=== PATIENT | female | born 1940 | race Caucasian/White ===

== ENCOUNTER 2017-04-08 13:32 | Emergency (ER) | payer MEDICARE, OTHER ==
[2017-04-08] MEDS ORDERED: Sodium Chloride 0.9% 10 ML Syringe FLUSH PRN (14:21)
[2017-04-08] MEDS ORDERED: Ondansetron 4 MG/2 ML SDV IVPUSH ONE (14:22)
[2017-04-08] MEDS ORDERED: Sodium Chloride 0.9% 1,000 ML IV SCH (14:30)
--- NOTE | 2017-04-08 14:31 | EDM.PDOC ---
ED HPI GENERAL MEDICAL PROBLEM - General Chief Complaint: Respiratory Problem Stated Complaint: BODY ACHES Time Seen by Provider: 04/08/17 13:57 Source of Information: Reports: Patient History Limitations: Reports: No Limitations - History of Present Illness INITIAL COMMENTS - FREE TEXT/NARRATIVE: Patient is 77-year-old female presents ED complaining of leg cramping bilaterally. Patient states symptoms started a few days ago and have progressively gotten worse. She states she's been unable to get a restful sleep secondary to the cramps. She was seen by her primary care provider yesterday and placed on a narcotic medication that did not relieve any discomfort or the frequency of cramping. In addition she's also been evaluated by her GI doctor in [place] for chronic diarrhea. She was placed on a powder presumed Colestid 2 months ago that has decreased the frequency of diarrhea episodes. Patient does have a history of adverse reactions to Lipitor and other statins and is concerned with her research that Lipitor may be within the Colestid. Patient is unaware that this is a bile acid sequestrant. She's also noted some discomfort to the anterior aspect her legs bilaterally that comes and goes. At times with onset of crampy she feels that she will follow over. She states that at times feel weak in her legs. In addition she's also been fighting a upper respiratory cold that is mild in nature and resolving for the past few days. She has noted some increased frequency of urination for the past week. Has felt mildly nauseated. No documented fever, shortness of breath, sore throat, chest pain, vomiting, blood in her stool, dysuria, or any additional complaints. Bilateral Lower Pain Score (Numeric/FACES): 9 - Related Data Allergies Allergy/AdvReac Type Severity Reaction Status Date / Time atorvastatin [From Lipitor] Allergy Joint Pain Verified 04/08/17 14:06 ezetimibe [From Vytorin] Allergy Other Verified 04/08/17 14:06 ibuprofen [From Motrin] Allergy Hypertensio Verified 04/08/17 14:06 n morphine Allergy Joint Pain Verified 04/08/17 14:06 oxycodone Allergy Joint Pain Verified 04/08/17 14:06 simvastatin [From Vytorin] Allergy Other Verified 04/08/17 14:06 Sulfa (Sulfonamide Allergy Swelling Verified 04/08/17 14:06 Antibiotics) Home Meds: Home Meds Aspirin [Halfprin] 81 mg PO DAILY 04/08/17 [History] Budesonide [Entocort EC] 3 mg PO DAILY 04/08/17 [History] Escitalopram Oxalate [Lexapro] 5 mg PO DAILY 04/08/17 [History] Fexofenadine [Laurie] 180 mg PO DAILY 04/08/17 [History] Fluticasone/Salmeterol [Advair 250-50 Diskus] 1 puff INH ASDIRECTED 04/08/17 [ History] Gluc 2KCl/Chondr/Claudio Hy/Hy Ac [Glucosamine & Chondroitin Cap] 1 cap PO DAILY [History] Lansoprazole [Prevacid] 20 mg PO DAILY 04/08/17 [History] Levothyroxine [Synthroid] 88 mcg PO DAILY 04/08/17 [History] Losartan/Hydrochlorothiazide [Hyzaar 100-25 Tablet] 1 tab PO DAILY 04/08/17 [ History] Potassium Chloride 20 meq PO QAM #30 tablet.er 04/08/17 [Rx] amLODIPine Besylate [Norvasc] 2.5 mg PO DAILY 04/08/17 [History] Past Medical History Cardiovascular History: Reports: Hypertension Gastrointestinal History: Reports: GERD, Other (See Below) Other Gastrointestinal History: celiaic disease Psychiatric History: Reports: Anxiety Endocrine/Metabolic History: Reports: Hypothyroidism - Past Surgical History HEENT Surgical History: Reports: Other (See Below) Other HEENT Surgeries/Procedures: sinus and seasonal allergies GI Surgical History: Reports: Colonoscopy Musculoskeletal Surgical History: Reports: Knee Replacement Social & Family History - Tobacco Use Smoking Status *Q: Never Smoker - Caffeine Use Caffeine Use: Reports: Coffee - Recreational Drug Use Recreational Drug Use: No ED ROS GENERAL - Review of Systems Review Of Systems: ROS reveals no pertinent complaints other than HPI. ED EXAM, GENERAL - Physical Exam Exam: See Below Exam Limited By: No Limitations General Appearance: Alert, WD/WN, No Apparent Distress Ears: Hearing Grossly Normal Nose: Normal Inspection Throat/Mouth: Normal Voice, No Airway Compromise Neck: Normal Inspection, Supple Respiratory/Chest: No Respiratory Distress, Lungs Clear, Normal Breath Sounds, No Accessory Muscle Use, Chest Non-Tender Cardiovascular: Normal Peripheral Pulses, Regular Rate, Rhythm, No Murmur Peripheral Pulses: 2+: Posterior Tibial (L), Posterior Tibial (R), 4+: Radial (L ), Radial (R) GI/Abdominal: Normal Bowel Sounds, Soft, Non-Tender, No Organomegaly, No Distention Back Exam: Normal Inspection Extremities: Normal Inspection, Normal Range of Motion, Non-Tender, No Pedal Edema, Normal Capillary Refill Neurological: Alert, Oriented, CN II-XII Intact, Normal Cognition, No Motor/ Sensory Deficits Psychiatric: Normal Affect, Normal Mood Skin Exam: Warm, Dry, Intact, Normal Color, No Rash Course - Vital Signs Last Recorded V/S: Last Vital Signs Temp 97.0 F 04/08/17 13:55 Pulse 66 04/08/17 13:55 Resp 20 04/08/17 13:55 BP 151/91 H 04/08/17 13:55 Pulse Ox 98 04/08/17 13:55 - Orders/Labs/Meds Orders: Active Orders 24 hr Category Date Time Status EKG Documentation Completion [RC] STAT Care 04/08/17 16:00 Active Peripheral IV Care [RC] . DIRECTED Care 04/08/17 14:21 Active MYOGLOBIN,URN Stat Lab 04/08/17 14:25 Received Peripheral IV Insertion Adult [OM.PC] Stat Oth 04/08/17 14:20 Ordered Labs: Laboratory Tests 04/08/17 04/08/17 04/08/17 Range/Units 14:25 14:30 14:30 WBC 7.83 (3.98-10.04) K/mm3 RBC 4.48 (3.98-5.22) M/mm3 Hgb 13.9 (11.2-15.7) gm/L Hct 40.1 (34.1-44.9) % MCV 89.5 (79.4-94.8) fl MCH 31.0 (25.6-32.2) pg MCHC 34.7 (32.2-35.5) g/dl RDW Std Deviation 44.5 (36.4-46.3) fL Plt Count 239 (182-369) K/mm3 MPV 7.9 L (9.4-12.3) fl Neut % (Auto) 48.0 (34.0-71.1) % Lymph % (Auto) 39.8 (19.3-51.7) % [place] % (Auto) 10.6 (4.7-12.5) % Eos % (Auto) 1.1 (0.7-5.8) Baso % (Auto) 0.5 (0.1-1.2) % Neut # (Auto) 3.75 (1.56-6.13) K/mm3 Lymph # (Auto) 3.12 (1.18-3.74) K/mm3 [place] # (Auto) 0.83 H (0.24-0.36) K/mm3 Eos # (Auto) 0.09 (0.04-0.36) K/mm3 Baso # (Auto) 0.04 (0.01-0.08) K/mm3 ESR (0-20) mm/hr Sodium 133 L (136-145) mEq/L Potassium 2.8 L (3.5-5.1) mEq/L Chloride 93 L (98-107) mEq/L Carbon Dioxide 30 (21-32) mEq/L Anion Gap 12.8 (5-15) BUN 13 (7-18) mg/dL Creatinine 0.8 (0.55-1.02) mg/dL Est Cr Clr Drug Dosing 48.06 mL/min Estimated GFR (MDRD) > 60 (>60) mL/min BUN/Creatinine Ratio 16.3 (14-18) Glucose 113 (83-115) mg/dL Calcium 9.4 (8.5-10.1) mg/dL Magnesium (1.8-2.4) mg/dl Total Bilirubin 0.4 (0.2-1.0) mg/dL AST 26 (15-37) U/L ALT 37 (14-59) U/L Alkaline Phosphatase 69 (46-116) U/L Creatine Kinase 59 (26-192) U/L C-Reactive Protein (<1.0) mg/dL Total Protein 8.1 (6.4-8.2) g/dl Albumin 4.0 (3.4-5.0) g/dl Globulin 4.1 gm/dL Albumin/Globulin Ratio 1.0 (1-2) Urine Color Yellow (Yellow) Urine Appearance Clear (Clear) Urine pH 7.0 (5.0-8.0) Ur Specific [place] 1.015 (1.005-1.030) Urine Protein Negative (Negative) Urine Glucose (UA) Negative (Negative) Urine Ketones Negative (Negative) Urine Occult Blood 2+ H (Negative) Urine Nitrite Negative (Negative) Urine Bilirubin Negative (Negative) Urine Urobilinogen 0.2 (0.2-1.0) Ur Leukocyte Esterase Negative (Negative) Urine RBC 0-5 (0-5) /hpf Urine WBC 0-5 (0-5) /hpf Ur Epithelial Cells 0-5 (0-5) /hpf Urine Bacteria Rare (FEW) /hpf Urine Mucus Not seen (FEW) /hpf 04/08/17 04/08/17 04/08/17 Range/Units 14:30 14:30 14:30 WBC (3.98-10.04) K/mm3 RBC (3.98-5.22) M/mm3 Hgb (11.2-15.7) gm/L Hct (34.1-44.9) % MCV (79.4-94.8) fl MCH (25.6-32.2) pg MCHC (32.2-35.5) g/dl RDW Std Deviation (36.4-46.3) fL Plt Count (182-369) K/mm3 MPV (9.4-12.3) fl Neut % (Auto) (34.0-71.1) % Lymph % (Auto) (19.3-51.7) % [place] % (Auto) (4.7-12.5) % Eos % (Auto) (0.7-5.8) Baso % (Auto) (0.1-1.2) % Neut # (Auto) (1.56-6.13) K/mm3 Lymph # (Auto) (1.18-3.74) K/mm3 [place] # (Auto) (0.24-0.36) K/mm3 Eos # (Auto) (0.04-0.36) K/mm3 Baso # (Auto) (0.01-0.08) K/mm3 ESR 18 (0-20) mm/hr Sodium (136-145) mEq/L Potassium (3.5-5.1) mEq/L Chloride (98-107) mEq/L Carbon Dioxide (21-32) mEq/L Anion Gap (5-15) BUN (7-18) mg/dL Creatinine (0.55-1.02) mg/dL Est Cr Clr Drug Dosing mL/min Estimated GFR (MDRD) (>60) mL/min BUN/Creatinine Ratio (14-18) Glucose (83-115) mg/dL Calcium (8.5-10.1) mg/dL Magnesium 1.8 (1.8-2.4) mg/dl Total Bilirubin (0.2-1.0) mg/dL AST (15-37) U/L ALT (14-59) U/L Alkaline Phosphatase (46-116) U/L Creatine Kinase (26-192) U/L C-Reactive Protein < 0.2 (<1.0) mg/dL Total Protein (6.4-8.2) g/dl Albumin (3.4-5.0) g/dl Globulin gm/dL Albumin/Globulin Ratio (1-2) Urine Color (Yellow) Urine Appearance (Clear) Urine pH (5.0-8.0) Ur Specific [place] (1.005-1.030) Urine Protein (Negative) Urine Glucose (UA) (Negative) Urine Ketones (Negative) Urine Occult Blood (Negative) Urine Nitrite (Negative) Urine Bilirubin (Negative) Urine Urobilinogen (0.2-1.0) Ur Leukocyte Esterase (Negative) Urine RBC (0-5) /hpf Urine WBC (0-5) /hpf Ur Epithelial Cells (0-5) /hpf Urine Bacteria (FEW) /hpf Urine Mucus (FEW) /hpf Meds: Medications Discontinued Medications Generic Name Dose Route Start Last Admin Trade Name Freq PRN Reason Stop Dose Admin Hydrocodone Bitart/Acetaminophen 1 tab 04/08/17 15:53 04/08/17 16:11 Simla 325-5 Mg PO 04/08/17 15:54 1 tab ONETIME ONE Administration Sodium Chloride 1,000 mls @ 125 mls/hr 04/08/17 14:30 04/08/17 14:34 Normal Saline IV 125 mls/hr ASDIRECTED KELLEN Administration Ondansetron HCl 4 mg 04/08/17 14:22 04/08/17 14:34 Zofran IVPUSH 04/08/17 14:23 4 mg ONETIME ONE Administration Potassium Chloride 40 meq 04/08/17 15:08 04/08/17 15:22 Potassium Chloride PO 04/08/17 15:09 40 meq ONETIME ONE Administration Sodium Chloride 10 ml 04/08/17 14:21 04/08/17 14:36 Saline Flush FLUSH 10 ml ASDIRECTED PRN Administration Keep Vein Open - Re-Assessments/Exams Free Text/Narrative Re-Assessment/Exam: IV established with normal saline 125 mL per hour and Zofran 4 mg IVP. Initial lab studies include CBC, chem 14, esr, crp, creatine kinase, UA, and myoglobin urine. Last few: CBC essentially normal. Sodium 133, potassium 2.8, chloride 93, creatinine 0.8, hCG 12.8, CK 59, CRP less than 0.2, magnesium 1.8, UA positive for occult blood. Ordered potassium supplementation 40 mg by mouth. Myoglobin and ESR pending. Do not believe current complaint is related to rhabdomyolysis with normal CK and low potassium. Will discharge prior to results. Believe cause of cramping to the lower legs is secondary to hypokalemia. EKG was ordered. EKG revealed: 1st degree av block rate 64, QTc 467, MT 214. No previous EKG to compare with. Will discharge patient home with instructions as documented. Departure - Departure Time of Disposition: 16:22 Disposition: Home, Self-Care 01 Condition: Good Clinical Impression: Muscle ache, Bilateral leg cramps, Hypokalemia - Discharge Information Prescriptions: Potassium Chloride 20 meq PO QAM #30 tablet.er Instructions: Muscle Cramps and Spasms, Hypokalemia Referrals: Eugenia Herrera [employer] [employer] [Primary Care Provider] - Forms: ED Department Discharge Additional Instructions: As discussed potassium level was low which is contributing to the muscle cramps to your lower extremities. Will have you take potassium chloride 20 mEq every day. Suggest eating a banana a day and also drinking Gatorade or Powerade. Eat a balanced diet. Continue taking all your home medications as prescribed. Follow -up with PCP this coming week for reevaluation to see if muscle cramps are resolving. Return to the ED if you develop any new or worsening symptoms. - My Orders Last 24 Hours: My Active Orders 04/08/17 14:20 Peripheral IV Insertion Adult [OM.PC] Stat 04/08/17 14:21 Peripheral IV Care [RC] . DIRECTED 04/08/17 14:25 MYOGLOBIN,URN Stat 04/08/17 16:00 EKG Documentation Completion [RC] STAT - Assessment/Plan Last 24 Hours: My Active Orders 04/08/17 14:20 Peripheral IV Insertion Adult [OM.PC] Stat 04/08/17 14:21 Peripheral IV Care [RC] . DIRECTED 04/08/17 14:25 MYOGLOBIN,URN Stat 04/08/17 16:00 EKG Documentation Completion [RC] STAT
[2017-04-08] MEDS ORDERED: Potassium Chloride 10% 20 MEQ/15 ML Soln 30 ML UD Cup PO ONE (15:08)
[2017-04-08] MEDS ORDERED: Acetaminophen/HYDROcodone 325-5 MG Tab PO ONE (15:53)
== END 2017-04-08 16:35 | disposition home or self-care (01) ==
LOC: JD.ED 13:32 → SUPCPDRO 13:32 → JD.ED 16:35
DX: M79.1 Myalgia (principal); M79.662 Pain in left lower leg; M79.661 Pain in right lower leg; E87.6 Hypokalemia; I10 Essential (primary) hypertension; E03.9 Hypothyroidism, unspecified; Z79.82 Long term (current) use of aspirin; Z79.899 Other long term (current) drug therapy; Z88.2 Allergy status to sulfonamides; Z88.8 Allergy status to other drugs, medicaments and biological substances; Z88.5 Allergy status to narcotic agent; Z88.6 Allergy status to analgesic agent
CPT/HCPCS: 36415; 80053; 81001; 82550; 83735; 83874; 85025; 85652; 86140; 93005; 96361; 96374; 99284; A9270; J2405; J7040; J7050; 93010; 99283